=== PATIENT | male | born 1995 | race Caucasian/White ===

== ENCOUNTER 2018-07-10 01:39 | Emergency (ER) | payer SELFPAY ==
[2018-07-10 02:08] VITALS: RESP 18; O2SAT 100
[2018-07-10] MEDS ORDERED: Sodium Chloride 0.9% 1,000 ML IV SCH (02:45)
[2018-07-10 03:00] LABS: BASO % 0.3 % (0.0-2.0); EOS # 0.1 K/uL (0.0-0.7); EOS % 1.1 % (0.0-4.0); HEMOGLOBIN 15.2 g/dL (12.0-18.0); LYMPH # 1.7 K/uL (1.0-4.3); LYMPH % 13.6 % (20.0-40.0); MEAN CORPUSCULAR HEMOGLOBIN 28.6 pg (27.0-31.0); MEAN CORPUSCULAR HGB CONC 34.5 g/dL (33.0-37.0); MEAN PLATELET VOLUME 8.5 fl (7.2-11.7); MONO # 0.9 K/uL (0.0-0.8); MONO % 7.1 % (0.0-10.0); NEUT % 77.9 % (50.0-75.0); NRBC % 0.1 % (0.0-0.0); RBC 5.3 Mil/uL (4.40-5.90); RED CELL DISTRIBUTION WIDTH 13.4 % (11.5-14.5); WHITE BLOOD COUNT 12.8 K/uL (4.8-10.8)
[2018-07-10 03:10] LABS: ALB/GLOB RATIO 1.7 (1.0-2.1); ALBUMIN 4.7 g/dL (3.5-5.0); ALT/SGPT 33 U/L (21-72); AST/SGOT 26 U/L (17-59); BLOOD UREA NITROGEN 12 mg/dl (9-20); CALCIUM 9.9 mg/dL (8.4-10.2); GFR NON-AFRICAN AMERICAN > 60
--- NOTE | 2018-07-10 03:53 | ED PDOC ---
HPI: Chest Pain Time Seen by Provider: 07/10/18 02:45 Chief Complaint (Nursing): Chest Pain Chief Complaint (Provider): Chest Pain History Per: Patient History/Exam Limitations: no limitations Onset/Duration Of Symptoms: Hrs (x2) Current Symptoms Are (Timing): Still Present Additional Complaint(s): 22 year old male presents to the ED with 2 hours of left sided chest pain that has been constant stabbing pain. Patient reports he had this pain for the past 4 years that comes and goes. 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 Patient noticed the pain when he was excited and when he was with his friend drinking alcohol. He reports laying down made the pain worse and has not taken any medications for pain. Prior to today, the last time he had this pain was about a month ago. Denies injuries, heavy lifting, anxiety, radiation of pain, pleuritic component, URI symptoms, or recent travel, leg pain or swelling. PMD: none Past Medical History Reviewed: Historical Data, Nursing Documentation, Vital Signs Vital Signs: Last Vital Signs Temp 98.7 F 07/10/18 02:07 Pulse 97 H 07/10/18 02:07 Resp 18 07/10/18 02:07 BP 125/81 07/10/18 02:07 Pulse Ox 100 07/10/18 02:07 - Medical History PMH: No Chronic Diseases - Surgical History Surgical History: No Surg Hx - Family History Family History: States: No Known Family Hx Denies: CAD - Social History Current smoker - smoking cessation education provided: No Alcohol: Occasional Drugs: Denies - Home Medications Home Medications: Ambulatory Orders Medication Instructions Recorded No Known Home Med 01/01/15 - Allergies Allergies/Adverse Reactions: Allergies Allergy/AdvReac Type Severity Reaction Status Date / Time No Known Allergies Allergy Verified 07/10/18 02:08 Review of Systems ROS Statement: Except As Marked, All Systems Reviewed And Found Negative Cardiovascular: Positive for: Chest Pain Respiratory: Negative for: Cough, Shortness of Breath Psych: Negative for: Anxiety Physical Exam - Reviewed Nursing Documentation Reviewed: Yes Vital Signs Reviewed: Yes - Physical Exam Comments: GENERALIZED APPEARANCE:Patient is awake, alert, oriented x3 in mild, obvious discomfort. Appears thin. Holding arm to left side of chest. SKIN: Warm, dry; (-) cyanosis. EYES: (-) conjunctival pallor. ENMT: Mucous membranes moist. NECK: (-) tenderness, (-) stiffness, (-) lymphadenopathy, (-) JVD. CHEST AND RESPIRATORY: (+) point tenderness to the left upper pec muscle, (-) crepitus, (-) erythema. Lungs: (-) rales, (-) rhonchi, (-) wheezes; breath sounds equal bilaterally. HEART AND CARDIOVASCULAR: (-) irregularity; (-) murmur, (-) gallop, (-) rub. ABDOMEN AND GI: Soft; (-) distention, (-) tenderness, (-) palpable pulsatile mass. EXTREMITIES: (-) deformity; (-) edema, (-) calf tenderness. (+) distal pulses. NEURO AND PSYCH: Mental status as above. Cranial nerves grossly intact; strength symmetric. - Laboratory Results Result Diagrams: 07/10/18 02:56 07/10/18 02:56 Lab Results: Troponin I < 0.0120 ng/mL (0.00-0.120) 07/10/18 02:56 Total Bilirubin 0.4 mg/dl (0.2-1.3) 07/10/18 02:56 AST 26 U/L (17-59) 07/10/18 02:56 ALT 33 U/L (21-72) 07/10/18 02:56 Alkaline Phosphatase 64 U/L (38-126) 07/10/18 02:56 Total Protein 7.5 G/DL (6.3-8.2) 07/10/18 02:56 Albumin 4.7 g/dL (3.5-5.0) 07/10/18 02:56 Globulin 2.8 gm/dL (2.2-3.9) 07/10/18 02:56 Albumin/Globulin Ratio 1.7 (1.0-2.1) 07/10/18 02:56 - ECG O2 Sat by Pulse Oximetry: 100 (RA) Pulse Ox Interpretation: Normal Medical Decision Making Medical Decision Making: Initial Impression: Chest pain Initial Plan: --ECG --CMP --Troponin stat --CBC --Chest X-ray --Sodium chloride 1000mL IV --Toradol 30mg PO --Urinalysis CXR reviewed by me and Dr. Sandie - no pneumothorax, infiltrates, cardiomegaly, no active disease on reeval pt is feeling much better, pain is resolved labs wnl, ekg and cxr show no acute cardiac or pulm etiology discussed results, diagnosis, treatment, return precautions and f/u with pt who is understanding, in agreement and stable for dc Scribe Attestation: Documented by Kenan Hernadez acting as a scribe for Regino HARRIS. Provider Scribe Attestation: All medical record entries made by the Scribe were at my direction and personally dictated by me. I have reviewed the chart and agree that the record accurately reflects my personal performance of the history, physical exam, medical decision making, and the department course for this patient. I have also personally directed, reviewed, and agree with the discharge instructions and disposition. Disposition - Clinical Impression Clinical Impression: Chest pain - Patient ED Disposition Is Patient to be Admitted: No Counseled Patient/Family Regarding: Studies Performed, Diagnosis, Need For Followup - Disposition Referrals: [facility] [Outside] Disposition: Routine/Home Disposition Time: 05:45 Condition: IMPROVED Additional Instructions: The emergency medical care you received today was directed at your acute symptoms. If you were prescribed any medication, please fill it and take as directed. It may take several days for your symptoms to resolve. Return to the Emergency Department if your symptoms worsen, do not improve, or if you have any other problems. Please contact your doctor in 2 days for re-evaluation and follow up / or call one of the physicians/clinics you have been referred to that are listed on the Patient Visit Information form that is included in your discharge packet. Bring any paperwork you were given at discharge with you along with any medications you are taking to your follow up visit. Our treatment cannot replace ongoing medical care by a primary care provider (PCP) outside of the emergency department. Instructions: Chest Pain Forms: [facility] (Azeri) Print Language: DJIBOUTIAN - POA Present On Arrival: None
[2018-07-10 05:17] LABS: URINE BILIRUBIN NEGATIVE (NEGATIVE); URINE BLOOD NEGATIVE (NEGATIVE); URINE CLARITY CLEAR (Clear); URINE COLOR STRAW (YELLOW); URINE GLUCOSE (UA) NEG (NEGATIVE); URINE LEUKOCYTE ESTERASE NEG Leu/uL (Negative); URINE PROTEIN NEGATIVE (NEGATIVE); URINE UROBILINOGEN 0.2-1.0 mg/dL (0.2-1.0)
[2018-07-10 06:41] VITALS: BP 120/78; PULSE 88; TEMP 98.3
--- NOTE | 2018-07-10 11:51 | RAD ---
Date of service: 07/10/2018 HISTORY: chest pain COMPARISON: Chest radiograph dated 01/01/2015. TECHNIQUE: Chest PA and lateral views FINDINGS: LUNGS: No active pulmonary disease. PLEURA: No significant pleural effusion identified. No pneumothorax apparent. CARDIOVASCULAR: No aortic atherosclerotic calcification present. Normal cardiac size. No pulmonary vascular congestion. OSSEOUS STRUCTURES: No significant abnormalities. VISUALIZED UPPER ABDOMEN: Normal. OTHER FINDINGS: None. IMPRESSION: No active disease.
--- NOTE | 2018-07-10 21:20 | CARD ---
APPROVED REPORT Date of service: 07/10/2018 EKG Measurement Heart [id number] <Conclusion> Normal sinus rhythm Normal Electrocardiogram
== END 2018-07-10 06:05 | disposition home or self-care (01) ==
LOC: H.ER 01:39
DX: R07.89 Other chest pain (principal)
CPT/HCPCS: 71046; 80053; 81003; 84484; 85025; 93005; 96374; 99284; J1885; J7030